=== PATIENT | male | born 2000 | race Two or more races ===

== ENCOUNTER 2021-04-13 08:38 | Emergency (ER) | payer OTHER ==
[~2021-04-13] VITALS: Ht 165.1 cm; Wt 54.9 kg
[2021-04-13] MEDS ORDERED: TRAZODONE HCL50 MG PO (08:49)
[2021-04-13] MEDS ORDERED: LAMICTAL200 M1 PO (08:49)
[2021-04-13] MEDS ORDERED: LANSOPRAZOLE30 MG PO (13:06)
[2021-04-13] MEDS ORDERED: PEPCID AC20 MG PO (13:06)
== END 2021-04-13 13:30 ==
LOC: ER 08:38
DX: K29.60 Other gastritis without bleeding (principal); E86.0 Dehydration

== ENCOUNTER 2021-08-03 08:06 | Emergency (ER) | payer OTHER ==
[~2021-08-03] VITALS: Ht 165.1 cm; Wt 52.2 kg
[~2021-08-03 08:06] MED LIST: LAMICTAL200 M1 PO; LANSOPRAZOLE30 MG PO; PEPCID AC20 MG PO; TRAZODONE HCL50 MG PO
== END 2021-08-03 14:11 | disposition home or self-care (01) ==
LOC: ER 08:06
DX: K29.00 Acute gastritis without bleeding (principal); Z88.6 Allergy status to analgesic agent

== ENCOUNTER 2021-09-04 08:52 | Emergency (ER) | payer OTHER ==
[~2021-09-04] VITALS: Ht 167.6 cm; Wt 49.9 kg
[2021-09-04] MEDS ORDERED: CLONAZEPAM1 MG (09:18)
== END 2021-09-04 17:20 | disposition home or self-care (01) ==
LOC: ER 08:52
DX: K29.70 Gastritis, unspecified, without bleeding (principal); E86.0 Dehydration; E87.6 Hypokalemia

== ENCOUNTER 2022-02-12 14:00 | Emergency (ER) | payer OTHER ==
[~2022-02-12] VITALS: Ht 167.6 cm; Wt 53.1 kg
[~2022-02-12 14:00] MED LIST changes: +CLONAZEPAM1 MG
== END 2022-02-12 18:51 | disposition home or self-care (01) ==
LOC: ER 14:00
DX: N48.1 Balanitis (principal); Z88.6 Allergy status to analgesic agent

== ENCOUNTER 2023-08-11 08:59 | Emergency (ER) | payer OTHER ==
[~2023-08-11] VITALS: Ht 170.2 cm; Wt 83.0 kg
[2023-08-11] MEDS ORDERED: ONDANSETRON HCL 2 MG/ML VIAL IV ONE (11:00)
[2023-08-11] MEDS ORDERED: 0.9 % SODIUM CHLORIDE 500 ML IV SCH (11:15)
[2023-08-11] MEDS ORDERED: MAG HYDROX/ALUMINUM HYD/SIMETH 30 ML BLIST.PACK PO ONE (11:15)
[2023-08-11] MEDS ORDERED: FAMOTIDINE/PF 20 MG/2 ML VIAL IV PUSH ONE (11:15)
[2023-08-11 11:57] LABS: HEMATOCRIT 45.6 % (39.0-48.0); HEMOGLOBIN 16.3 g/dL (13-16.00); MEAN CORPUSCULAR HEMOGLOBIN 30.8 pg (27.00-32.0); MEAN CORPUSCULAR HGB CONC 35.8 g/dl (32.0-36.0); PLATELET COUNT 252 K/uL (150-450); RED BLOOD COUNT 5.31 M/uL (4.00-6.00); RED CELL DISTRIBUTION WIDTH 12.3 % (11.5-14.5)
[2023-08-11 12:12] LABS: CALCIUM 10.5 mg/dL (8.5-10.1); CREATININE SERUM 1.27 mg/dL (0.70-1.30); GFR 70.28
[2023-08-11 12:17] LABS: POTASSIUM 2.52 mEq/L (3.5-5.1)
[2023-08-11 12:26] LABS: PH,URINE 5.5 (5.0-8.0); URINE APPEARANCE Clear; URINE BILIRRUBIN Negative (NEGATIVE); URINE BLOOD Small; URINE COLOR Yellow; URINE GLUCOSE Negative (NEGATIVE); URINE LEUKOCYTE Negative; URINE NITRATE Negative; URINE PROTEIN Trace (NEGATIVE); URINE UROBILINOGEN 0.2 E.U./dl
[2023-08-11 12:28] LABS: URINE EPITHELIAL CELLS 4.1 uL (0.0-38.8); URINE RBC 9.4 uL (0.0-20.8); URINE WBC 5.5 uL (0.0-23.2)
[2023-08-11 12:29] LABS: URINE BACTERIA 3.7 uL (0.0-1933)
[2023-08-11] MEDS ORDERED: RINGERS SOLUTION,LACTATED 10,000 ML IV SCH (13:45)
[2023-08-11] MEDS ORDERED: POTASSIUM CHLORIDE IN 0.9%NACL 1,000 ML IV SCH (15:30)
[2023-08-11] MEDS ORDERED: POTASSIUM CHLORIDE 10 MEQ CAPSULE PO ONE (17:45)
== END 2023-08-11 18:46 | disposition left against medical advice (07) ==
LOC: ER 08:59
PROVIDERS: Emergency Medicine
DX: K29.60 Other gastritis without bleeding (principal); E87.6 Hypokalemia; R11.10 Vomiting, unspecified; Z88.6 Allergy status to analgesic agent